=== PATIENT | female | born 2005 | race Two or more races ===

== ENCOUNTER 2025-05-18 21:36 | Emergency (ER) | payer OTHER ==
[~2025-05-18] VITALS: Ht 149.9 cm; Wt 59.0 kg
[2025-05-19 00:13] LABS: URINE APPEARANCE Clear; URINE BILIRRUBIN Negative (NEGATIVE); URINE BLOOD Negative; URINE COLOR Yellow; URINE GLUCOSE Negative (NEGATIVE); URINE KETONE Negative (NEGATIVE); URINE LEUKOCYTE Small; URINE NITRATE Negative; URINE PROTEIN Negative (NEGATIVE); URINE UROBILINOGEN 1.0 E.U./dl
[2025-05-19 00:14] LABS: BASO % 0.6 % (0.1-1.2); EOS # 0.11 (0.04-0.54); EOS % 1.0 % (0.7-7.0); LYMPH # 3.56 (1.18-3.74); LYMPH % 31.1 % (19.3-53.1); MONO # 0.82 (0.24-0.82); MONO % 7.2 % (4.7-12.5); NEUT # 6.86 (1.56-6.13); NEUT % 59.8 % (34.0-71.1); RED CELL DISTRIBUTION WIDTH 21.4 % (11.6-14.4)
[2025-05-19 00:16] LABS: URINE BACTERIA 901.0 uL (0.0-1933); URINE EPITHELIAL CELLS 6.6 uL (0.0-38.8); URINE RBC 2.4 uL (0.0-20.8); URINE WBC 99.3 uL (0.0-23.2)
[2025-05-19 00:25] LABS: URINE CAST 0.00 uL (0.0-1.40)
[2025-05-19 00:38] LABS: ALT/SGPT 20.0 U/L (12-78); AST/SGOT 21.0 U/L (15-37); BILIRUBIN TOTAL 0.18 mg/dL (0.3-1.2); BUN CREA RATIO 13.0 (7.0-25.0); CREATININE SERUM 0.79 mg/dL (0.55-1.02); GFR 92.78; GLOBULINA 3.7 G/DL (2.4-3.5); GLUCOSE FASTING 86.0 mg/dL (65-100); OSMOLALITY SERUM 281.0 MOSM/KG (275-295)
[2025-05-19] MEDS ORDERED: LIDOCAINE HCL/MPF 1% 2ML AMPUL IJ ONE (01:48)
[2025-05-19] MEDS ORDERED: CEFTRIAXONE SODIUM 1,000 MG VIAL ONE (01:48)
[2025-05-19] MEDS ORDERED: CEPHALEXIN500 MG PO (01:49)
[2025-05-19] MEDS ORDERED: CEFTRIAXONE SODIUM 1,000 MG VIAL IM ONE (02:00)
== END 2025-05-19 02:13 | disposition home or self-care (01) ==
LOC: ER 21:36
PROVIDERS: General Practice
DX: N39.0 Urinary tract infection, site not specified (principal)
CPT/HCPCS: 36415; 96372; 99282; J0696